=== PATIENT | male | born 1995 | race Caucasian/White ===

== ENCOUNTER 2018-09-14 13:40 | Emergency (ER) | payer OTHER ==
--- NOTE | 2018-09-14 14:32 | EDPHY ---
HPI/HX/ROS/PE/MDM Narrative: CHIEF COMPLAINT: Cold symptoms, nausea, abdominal pain HPI: The patient is a 23 y/o male with no significant past medical history who presents with what he describes as waxing and waning cold symptoms for the last 6 days now associated with abdominal discomfort and nausea over the last day. He first noticed chills, lightheadedness, rhinorrhea, and left ear pain. The ear pain improved after one day and he has been using DayQuil for his other symptoms with some alleviation. Yesterday evening he developed "light" upper abdominal pain and had a looser, non-bloody bowel movement. This morning the pain was still present and sometimes seemed worse in his lower abdomen. Walking around seemed to aggravate his nausea and he began dry heaving repeatedly prior to arriving here. He's had associated loss of appetite for the last several days and has been reluctant to even drink water due to the nausea. He took one dose of Tums this morning, which worsened his nausea. He denies urinary symptoms , testicular pain, penile drainage, fever, acid reflux, vomiting, diarrhea, cough, chest pain, shortness of breath, recent trauma. His girlfriend was recently ill with URI symptoms. No prior history of abdominal surgeries. He did not get a flu vaccination this season. REVIEW OF SYSTEMS: Aside from elements discussed in the HPI, a comprehensive 10-point review of systems was reviewed and is negative. PMH: Denies SOCIAL HISTORY: Girlfriend at bedside. Transitioning jobs and moving here from [employer]. PHYSICAL EXAM: General:Patient is alert, in no acute distress. Thin. ENT:Eyes are normal to inspection. ENT inspection normal. Neck: Normal inspection. Full range of motion. Respiratory:No respiratory distress. Breath sounds normal bilaterally. Cardiovascular: Regular rate and rhythm. Strong peripheral pulses. Normal cap refill. Abdomen:The abdomen has RLQ tenderness to palpation. There are no peritoneal signs. Back: Normal to inspection. No tenderness to palpation. Skin: Normal color. No rash. Warm and dry. Extremities: Normal appearance. Full range of motion. Neuro: Oriented x3. Normal motor function. Normal sensory function. ED Course: This is a 23 y/o male with no significant prior medical history who presents with a 6-day history of somewhat vague waxing and waning symptoms including rhinorrhea, ear pain, lightheadedness, nausea, and now abdominal pain. He is quite thin and dehydrated-appearing on exam and has RLQ abdominal tenderness to palpation. Plan for IV, labs, abdominal CT, symptomatic management. 1L IV NS ordered. Labs unremarkable. Abdominal CT is negative. Reassessed patient and discussed findings. He will be discharged home with standard care and follow up instructions. Return precautions discussed. He is comfortable with this plan. - Data Points Imaging Results: Imaging Impressions Abdomen CT 09/14/18 14:56 Impression: 1. There is no CT evidence of appendicitis. 2. Borderline-splenomegaly. 3. Mild constipation. Findings were discussed with Robin Campbell MD at 15:57, on 09/14/2018. Imaging: Discussed imaging studies w/ inbound call center representative Radiologist, I viewed and interpreted images myself Laboratory Results: Laboratory Results 09/14/18 14:15 09/14/18 14:15 09/14/18 09/14/18 14:15 14:15 WBC 7.49 10^3/uL 10^3/uL (3.80-9.50) RBC 5.82 10^6/uL 10^6/uL (4.40-6.38) Hgb 17.1 g/dL g/dL (13.7-17.5) Hct 49.5 % % (40.0-51.0) MCV 85.1 fL fL (81.5-99.8) MCH 29.4 pg pg (27.9-34.1) MCHC 34.5 g/dL g/dL (32.4-36.7) RDW 13.2 % % (11.5-15.2) Plt Count 232 10^3/uL 10^3/uL (150-400) MPV 8.9 fL fL (8.7-11.7) Neut % (Auto) 58.5 % % (39.3-74.2) Lymph % (Auto) 33.2 % % (15.0-45.0) [place] % (Auto) 7.1 % % (4.5-13.0) Eos % (Auto) 0.3 % L % (0.6-7.6) Baso % (Auto) 0.8 % % (0.3-1.7) Nucleat RBC Rel Count 0.0 % % (0.0-0.2) Absolute Neuts (auto) 4.38 10^3/uL 10^3/uL (1.70-6.50) Absolute Lymphs (auto) 2.49 10^3/uL 10^3/uL (1.00-3.00) Absolute Monos (auto) 0.53 10^3/uL 10^3/uL (0.30-0.80) Absolute Eos (auto) 0.02 10^3/uL L 10^3/uL (0.03-0.40) Absolute Basos (auto) 0.06 10^3/uL 10^3/uL (0.02-0.10) Absolute Nucleated RBC 0.00 10^3/uL 10^3/uL (0-0.01) Immature Gran % 0.1 % % (0.0-1.1) Immature Gran # 0.01 10^3/uL 10^3/uL (0.00-0.10) Sodium 140 mEq/L mEq/L (135-145) Potassium 4.3 mEq/L mEq/L (3.5-5.2) Chloride 104 mEq/L mEq/L (97-110) Carbon Dioxide 26 mEq/l mEq/l (22-31) Anion Gap 10 mEq/L mEq/L (6-14) BUN 15 mg/dL mg/dL (7-23) Creatinine 0.9 mg/dL mg/dL (0.7-1.3) Estimated GFR > 60 Glucose 88 mg/dL mg/dL (70-100) Calcium 10.1 mg/dL mg/dL (8.5-10.4) Medications Given: Discontinued Medications Sodium Chloride (Ns) 1,000 mls @ 0 mls/hr IV EDNOW ONE; Wide Open PRN Reason: Protocol Stop: 09/14/18 14:39 Last Admin: 09/14/18 14:47 Dose: 1,000 mls General Time Seen by Provider: 09/14/18 14:10 Initial Vital Signs: Initial Vital Signs Temperature (C) 36.9 C 09/14/18 14:04 Heart Rate 68 09/14/18 14:04 Respiratory Rate 16 09/14/18 14:04 Blood Pressure 135/80 H 09/14/18 14:04 O2 Sat (%) 94 09/14/18 14:04 O2 Delivery Mode Room Air Allergies/Adverse Reactions: No Known Allergies Allergy (Unverified 09/14/18 14:08) Home Medications: Medication Instructions Recorded NK [No Known Home Meds] 09/14/18 Departure - Departure Disposition: Home, Routine, Self-Care Clinical Impression: Abdominal pain Qualifiers: Abdominal location: right lower quadrant Qualified Code(s): R10.31 - Right lower quadrant pain Upper respiratory infection Qualifiers: URI type: unspecified viral URI Qualified Code(s): J06.9 - Acute upper respiratory infection, unspecified Condition: Good Instructions: Upper Respiratory Infection (ED), Acute Abdominal Pain (ED) Additional Instructions: 1. Increase fluid intake as tolerated. 2. Follow up with your primary care provider for unimproved symptoms over the next 2-3 days. 3. Return to the ED for severe pain, uncontrollable vomiting, fever, or other worsening of condition. Referrals: Petey Mcpherson MD [Medical Doctor] - As per Instructions Report Scribed for: Robin Campbell Report Scribed by: Nancy Ervin Date of Report: 09/14/18 Time of Report: 15:29 Physician Review and Approval Statement: Portions of this note were transcribed by an ED scribe. I personally performed the history, physical exam, and medical decision making; and confirm the accuracy of the information in the transcribed note.
[2018-09-14] MEDS ORDERED: NS 1,000 ML IV ONE (14:38)
[2018-09-14 14:47] LABS: PLATELET COUNT 232 10^3/uL (150-400)
[2018-09-14] MEDS ORDERED: IOHEXOL 300 mgI/ML (OMNIPAQUE) 150 ML BTL IV ONE (15:05)
[2018-09-14 16:13] VITALS: BP 124/67
== END 2018-09-14 16:10 | disposition home or self-care (01) ==
DX: R10.31 Right lower quadrant pain (principal); J06.9 Acute upper respiratory infection, unspecified; E86.9 Volume depletion, unspecified
CPT/HCPCS: Q9967